=== PATIENT | male | born 1975 | race American Indian/Alaskan Native ===

== ENCOUNTER 2018-03-02 19:57 | Emergency (ER) | payer MEDICAID, OTHER ==
[2018-03-02] MEDS ORDERED: Acetaminophen 500 MG Tab PO ONE (20:31)
[2018-03-02] MEDS ORDERED: Ondansetron 4 MG Tab.DIS PO ONE (20:31)
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
== END 2018-03-02 22:11 | disposition hospice, home (50) ==
LOC: JP.ED 19:57
DX: S13.9XXA Sprain of joints and ligaments of unspecified parts of neck, initial encounter (principal); S00.03XA Contusion of scalp, initial encounter; F69 Unspecified disorder of adult personality and behavior; W22.8XXA Striking against or struck by other objects, initial encounter
CPT/HCPCS: 70450; 72125; 99285; A9270